=== PATIENT | male | born 1995 | race Caucasian/White ===

== ENCOUNTER 2017-01-29 12:27 | Inpatient (IN) | payer MEDICAID ==
--- NOTE | ~2017-01-29 | PN ---
Unit #: [id number] #: [id number] Patient: LAM MORGAN [id number] [facility] [address] [place] [address] [id number] MR#: [id number] NAME: LAM MORGAN ROOM: [facility]0 Age: 21 Sex: M Admission Date: 01/29/2017 : 1995 Attending Physician: Elie Samuel M.D. Admitting Physician: Elie Samuel M.D. Primary Care Physician: Generic Doctor Not In System [facility] PROGRESS NOTES DATE 01/31/2017 DISCUSSION The patient is abed today resting comfortably. Staff reports that he is continuing to endorse positive suicidal ideation. Dictated by... Elie Samuel M.D. CB/ej TD: 01/31/2017 15:25 JOB #: [id number] [facility] PROGRESS NOTES Page 1 of 1 X Elie Samuel MD X PROGRESS NOTE
--- NOTE | ~2017-01-29 | PN ---
Unit #: [id number] #: [id number] Patient: LAM MORGAN [id number] [facility] [address] [place] [address] [id number] MR#: [id number] NAME: LAM MORGAN ROOM: P210 Age: 21 Sex: M Admission Date: 01/29/2017 : 1995 Attending Physician: Elie Samuel M.D. Admitting Physician: Elie Samuel M.D. Primary Care Physician: Generic Doctor Not In System [facility] PROGRESS NOTES DATE 01/30/2017 DISCUSSION The patient is abed today. He is in significant physical distress leading this physician to believe that he was probably using heroin more than he had previously stated. The patient is requesting large portions today. Otherwise he offers no new complaints but continues to express feelings of hopelessness and positive suicidal ideation. Dictated by... Elie Samuel M.D. CB/bzg TD: 01/30/2017 14:00 JOB #: [id number] [facility] PROGRESS NOTES Page 1 of 1 X Elie Samuel MD PROGRESS NOTE
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
--- NOTE | ~2017-01-29 | HP ---
Unit #: [id number] #: [id number] Patient: DWAYNE MORGAN [id number] [place] [address] [id number] I MR#: [id number] NAME: DWAYNE MORGAN ROOM: P210 Age: 21 Sex: M Admission Date: 01/29/2017 : 1995 Attending Physician: Elie Samuel M.D. Admitting Physician: Elie Samuel M.D. Primary Care Physician: Generic Doctor Not In System HISTORY AND PHYSICAL HISTORY OF PRESENT ILLNESS Dwayne is a 21 year old admitted to [address] [place] [address] because of his drug use. He abuses amphetamines. PAST MEDICAL HISTORY Long history of illicit substance abuse to include amphetamines PAST SURGICAL HISTORY Nothing reported ALLERGIES Penicillin, tramadol. SOCIAL HISTORY Smokes one pack per day. Denies alcohol. Admits to a long history of illicit substance abuse to include methamphetamine. FAMILY HISTORY Medically noncontributory. REVIEW OF SYSTEMS CONSTITUTIONAL: No fever or chills. HEENT: Denies any sore throat, ear pain or runny nose. CARDIOVASCULAR: Denies chest pain, irregular heart rhythm or palpitations. CHEST: Denies shortness of breath or cough. No hemoptysis. GASTROINTESTINAL: Denies nausea, vomiting, diarrhea or chronic constipation. ENDOCRINE: Denies history of increased thirst or urination. No recent significant weight loss or gain. GENITOURINARY: Denies dysuria, frequency, or hematuria. SKIN: Denies any rashes. HEMATOLOGIC: Denies history of increased bleeding or bruising. MUSCULOSKELETAL: Denies any hot, swollen joints. No generalized muscle pain. NEUROLOGIC: Denies problems with vision or speech. No frequent, severe headaches. No numbness, tingling or weakness in any extremities. Denies loss of bladder or bowel control. CURRENT MEDICATIONS 1. Detox protocol 2. Remeron 15 mg q.h.s. Unit #: [id number] #: [id number] Patient: DWAYNE MORGAN PHYSICAL EXAMINATION GENERAL: Alert, well-nourished, in no apparent distress. VITAL SIGNS: Blood pressure 124/78, heart rate 74, respirations 16, temperature 98.6. WEIGHT: 180 pounds. HEIGHT: 6'2". SKIN: Warm and dry without rash or lesion. HEENT: Normocephalic. TMs not viewed. Oral and nasal passages clear. Conjunctivae clear. Pupils equal, round and reactive to light and accommodation. Extraocular movements intact. NECK: Supple without lymphadenopathy or thyromegaly. HEART: Regular rate and rhythm without murmur. LUNGS: Clear. ABDOMEN: Soft, nontender. : Not done. EXTREMITIES: No evidence of cyanosis, clubbing or edema. Moves all extremities without focal deficit. NEUROLOGICAL: Grossly within normal limits. Cranial Nerves: II: Visual harman are intact. III, IV AND : Extraocular movements are intact. Pupils are equal, round and reactive to light. V: Facial sensation is grossly normal. VII: Facial movements and expression are normal. VIII: Auditory acuity grossly intact. IX, X: Uvula is midline. Phonation is normal. XI: Patient shrugs shoulders and turns head normally. XII: Tongue protrudes in the midline. Sensory and Motor Function: Sensory and motor sensation is grossly normal. Motor: moves all extremities well. Coordination: Gait is normal. Deep Tendon Reflexes: Intact. IMPRESSION Psychiatric admission. RECOMMENDATIONS PSYCHIATRIC: Per psychiatrist. MEDICAL: I see no contraindications to participating in facility's activities. MEDICAL PROGNOSIS Good. MEDICAL CONDITION Stable. Dictated by... Adama BensonACathy. for Edgardo Arreguin/philipp TD: 01/30/2017 00:01 JOB #: [id number] Unit #: [id number] #: [id number] Patient: DWAYNE MORGAN HISTORY AND PHYSICAL Page 1 of 1 X Nicci Orosco HISTORY AND PHYSICAL
--- NOTE | ~2017-01-29 | DS ---
Unit #: [id number] #: [id number] Patient: LAM MORGAN [id number] [facility] [address] [place] [address] [id number] MR#: [id number] NAME: LAM MORGAN [facility] Age: 21 Sex: M Admission Date: 01/29/2017 : 1995 Discharge Date: 02/02/2017 Attending Physician: Elie Samuel M.D. Primary Care Physician: Generic Doctor Not In System DISCHARGE SUMMARY REASON FOR ADMISSION The patient is a 21-year-old male, admitted to the [address] [place] [address] unit with a history of suicidal ideation and heroin abuse. HOSPITAL COURSE The patient was admitted to the [address] [place] [address] unit and placed on suicide precautions. It was felt that the patient's depressive symptoms were mainly reactive in nature and no antidepressant medication was initiated. The patient was generally pleasant and cooperative in his interactions with peers and staff and by 02/02/2017 had made arrangements to go to the [facility]. As per his request, discharge was ordered. FINAL DIAGNOSES Opioid use disorder, adjustment disorder with depressed mood. DISPOSITION ON DISCHARGE The patient is discharged on the following medications; clotrimazole-betamethasone apply b.i.d. to affected areas for psoriasis. DISCHARGE INSTRUCTIONS No dietary or physical restrictions were placed on the patient at the time of discharge. FOLLOWUP Followup will take place through the auspices of community mental health and chemical dependency treatment resources. PROGNOSIS The patient's prognosis is considered fair. Dictated by... Elie Samuel M.D. CB/javad TD: 02/02/2017 22:47 JOB #: [id number] Unit #: [id number] #: [id number] Patient: LAM MORGAN DISCHARGE SUMMARY Page 1 of 1 X Elie Samuel MD X DISCHARGE SUMMARY
[2017-01-30 09:31] LABS: URINE APPEARANCE CLEAR; URINE BILIRUBIN NEG (NEG); URINE BLOOD NEG (NEG); URINE COLOR DK YELLOW; URINE GLUCOSE NEG (NEG); URINE KETONE NEG (NEG); URINE LEUKOCYTE ESTERASE 1+ (NEG); URINE NITRATE NEG (NEG); URINE PH 6.5 (5-8); URINE PROTEIN NEG (NEG); URINE SPECIFIC GRAVITY 1.018 (1.003-1.035)
[2017-01-30 09:34] LABS: URBCS1 AUWI 0-2 /[HPF] (0-2); URINE BACTERIA AUWI NEG (NEGATIVE); URINE SQUAMOUS EPITHELIAL CELL OCC /[HPF]
[2017-01-30 09:59] LABS: AMPHETAMINE POS (NEG); BARBITURATES NEG (NEG); BENZODIAZEPINES NEG (NEG); COCAINE NEG (NEG); MARIJUANA POS (NEG); OPIATES NEG (NEG); TRICYCLIC ANTIDEPRESSANTS NEG (NEG); U METHADONE NEG (NEG)
[2017-01-30 10:03] LABS: URINE CRYSTALS CALCIUM OXALATE /[HPF]; URINE MUCUS PRESENT
[2017-01-31 11:54] LABS: BASOPHIL% 0.6 % (0-2.5); EOSINOPHIL# 0.2 X10e3 (0-0.7); HEMATOCRIT 44.3 % (38.0-50.0); HEMOGLOBIN 14.7 gm/dL (13.0-16.0); LYMPHOCYTE# 1.1 X10e3 (1.0-3.5); LYMPHOCYTE% 34.3 % (17.0-45.0); MEAN CELL VOLUME 94.2 FL (83-96); MEAN CORPUSCULAR HEMOGLOBIN 31.2 PG (28-34); MEAN CORPUSCULAR HGB CONC 33.1 g/dL (30-36); MEAN PLATELET VOLUME 9.7 FL (6.5-11.5); MONOCYTE# 0.3 X10e3 (0-1.0); MONOCYTE% 9.1 % (3.0-12.0); NEUTROPHIL# 1.6 X10e3 (1.5-7.1); PLATELET COUNT 194 X10e3 (140-420); RED CELL DISTRIBUTION WIDTH 13.5 % (11.0-15.5); WHITE BLOOD COUNT 3.2 X10e3 (4.0-10.5)
[2017-01-31 11:58] LABS: DIFF IND NO
[2017-01-31 11:59] LABS: THYROID STIMULATING HORMONE 0.27 uIU/ml (0.34-5.60)
[2017-01-31 12:00] LABS: ALBUMIN SERUM 3.4 g/dL (3.5-5.0); BILIRUBIN,TOTAL 0.8 mg/dL (0.2-2.0); BUN/CREATININE RATIO 11.25; CALCIUM SERUM 8.9 mg/dL (8.4-10.2); CREATININE SERUM 0.8 mg/dL (0.6-1.4); POTASSIUM 4.8 mmol/L (3.5-5.1); PROTEIN TOTAL SERUM 6.2 g/dL (6.0-8.3)
[2017-02-03 23:43] LABS: HA AB IGM (HEPPAN) Nonreactive (Nonreactive); HB CORE AB IGM (HEPPAN) Nonreactive (Nonreactive); HB S AG (HEPPAN) Nonreactive (Nonreactive); HEP C AB (HEPPAN) Nonreactive (Nonreactive); HEP C AB SIGNAL TO CUTOFF 0.04 ratio (<1.00)
== END 2017-02-02 14:20 | DRG 897 ==
LOC: P2S 12:27
PROVIDERS: Specialist
PROC: HZ2ZZZZ Detoxification Services for Substance Abuse Treatment (ICD-10-PCS; principal; 2017-01-29)
DX: F11.10 Opioid abuse, uncomplicated (principal); R45.851 Suicidal ideations; F34.1 Dysthymic disorder; F15.10 Other stimulant abuse, uncomplicated; Z59.0 Homelessness; F17.210 Nicotine dependence, cigarettes, uncomplicated; F43.21 Adjustment disorder with depressed mood; L40.9 Psoriasis, unspecified
CPT/HCPCS: 80053; 80074; 80307; 81003; 84439; 84443; 85025; 86592; 87806